=== PATIENT | female | born 1965 | race Caucasian/White ===

== ENCOUNTER 2018-01-09 13:05 | Emergency (ER) | payer OTHER ==
[2018-01-09] MEDS: TETRACAINE 0.5% OPHTH SOLUTION 4ML BOTTLE. OS (13:21)
[2018-01-09] MEDS: FLUORESCEIN OPHTH TEST STRIP. OS (13:21)
[2018-01-09] MEDS: DIPHTH,PERTUSS(ACELL),TET TOX 0.5 ML DISP.SYRIN. VAX IM (13:22)
== END 2018-01-09 13:42 | disposition home or self-care (01) ==
LOC: ER 13:05
DX: T15.12XA Foreign body in conjunctival sac, left eye, initial encounter (principal)
CPT/HCPCS: 65205; 65222; 90471; 90715; 99284-25

== ENCOUNTER 2019-06-12 12:13 | Emergency (ER) | payer MEDICAID, OTHER ==
[~2019-06-12] VITALS: Ht 154.9 cm; Wt 61.2 kg
[~2019-06-12 12:13] MED LIST: ERYT1OIN6 OP; HYDR-3164 PO
--- NOTE | 2019-06-12 13:34 | RAD ---
CHEST PA LATERAL History: Cough Comparison: None. Findings: No consolidation or pleural effusion. Normal heart size. Postop changes lower cervical spine. Chronic right-sided rib fractures. Impression: 1. No acute cardiopulmonary process. Electronically signed by: Bridger Celis DO (06/12/2019 1:31 PM) [facility]
[2019-06-12] MEDS ORDERED: ALBU2.5V8 INH (13:44)
[2019-06-12] MEDS ORDERED: AZIT1PAC9 PO (13:44)
[2019-06-12] MEDS ORDERED: BENZ100C PO (13:44)
--- NOTE | 2019-06-12 13:45 | PHYS DOC ---
Past Medical History Past Medical History: Bronchitis, COPD, TB (took medication for 20 years ago) Past Surgical History: , Pacemaker, Tubal ligation, Other Additional Past Surgical Histo: D & C X 2, NECK SX, ROTATOR CUFF SX Smoking: Cigarettes, Less than 1pk/day Alcohol Use: Rarely Drug Use: None Adult General Chief Complaint Chief Complaint: Congestion [facility] HPI Patient is a 53 year old female who presents to the emergency department with complaints of a cough for the last month that has increased over the last 2 weeks. Patient states she is unable to produce any mucus with her cough. She denies any shortness of breath, or wheezing. Patient also denies any fever, nausea, vomiting, diarrhea, abdominal pain, dysuria, increased urinary frequency, ear pain, sore throat, or headache. Review of Systems Review of Systems Constitutional: Denies fever or chills [] Eyes: Denies change in visual acuity, redness, or eye pain [] HENT: Denies nasal congestion or sore throat [] Respiratory: Denies wheezing or shortness of breath; see hPI Cardiovascular: No additional information not addressed in HPI; denies chest pain or palpitations [] GI: Denies abdominal pain, nausea, vomiting, or diarrhea [] : Denies dysuria or hematuria [] Musculoskeletal: Denies back pain or joint pain [] Integument: Denies rash or skin lesions [] Neurologic: Denies headache Complete systems were reviewed and found to be within normal limits, except as documented in this note. Allergies Allergies Allergies Coded Allergies Type Severity Reaction Last Updated Verified No Known Drug Allergies 01/09/18 No Physical Exam Physical Exam Constitutional: Well developed, well nourished, no acute distress, non-toxic appearance. [] HENT: Normocephalic, atraumatic, bilateral external ears normal, posterior pharynx normal, oropharynx moist, no oral exudates, nose normal. [] Eyes: PERRLA, EOMI, conjunctiva normal, no discharge. [] Neck: Normal range of motion, no stridor. [] Cardiovascular:Heart rate regular rhythm, no murmur [] Lungs & Thorax: Bilateral breath sounds clear to auscultation; no retractions, no wheezing, [] Skin: Warm, dry, no erythema, no rash. [] Back: No tenderness Extremities: No cyanosis, ROM intact, no edema. [] Neurologic: Alert and oriented X 3, no focal deficits noted. [] Psychologic: Affect normal, judgement normal, mood normal. [] Current Patient Data Vital Signs Vital Signs Date Time Temp Pulse Resp B/P (MAP) Pulse Ox O2 Delivery O2 Flow Rate FiO2 06/12/19 13:10 97.7 98 18 122/65 (84) 97 Room Air 97.7 EKG EKG [] Radiology/Procedures Radiology/Procedures PROCEDURE: CHEST PA & LATERAL CHEST PA LATERAL History: Cough Comparison: None. Findings: No consolidation or pleural effusion. Normal heart size. Postop changes lower cervical spine. Chronic right-sided rib fractures. Impression: 1. No acute cardiopulmonary process. [] Course & Med Decision Making Course & Med Decision Making Pertinent Labs and Imaging studies reviewed. (See chart for details) [] Dragon Disclaimer Dragon Disclaimer This electronic medical record was generated, in whole or in part, using a voice recognition dictation system. Departure Departure Impression: Primary Impression: Bronchitis Disposition: HOME, SELF-CARE Condition: STABLE Referrals: NO PCP (PCP) Patient Instructions: Acute Bronchitis, [id number] Additional Instructions: Fill prescriptions and use as directed. Avoid airway irritants including smoke, dust, animal dander, and fragrances. Follow up with your primary care doctor in 1-2 days, return to the ER if symptoms worsen. Scripts Benzonatate (TESSALON PERLE) 100 Mg Capsule 1 CAP PO TID PRN for COUGH for 7 Days, #21 CAP 0 Refills Prov: KATARINA BARNETT [employer] 06/12/19 Albuterol Sulfate (PROAIR HFA INHALER) 8.5 Gm Hfa.aer.ad 2 PUFF INH PRN Q6HRS PRN for SHORTNESS OF BREATH for 30 Days, #1 INHALER 1 Refill Prov: KATARINA BARNETT [employer] 06/12/19 Azithromycin (AZITHROMYCIN PACKET) 1 Gm Packet 1 PACKET PO UD for 5 Days, #1 PACKET 0 Refills Prov: KATARINA BARNETT [employer] 06/12/19 KATARINA BARNETT [employer] IN[employer] Jun 12, 2019 13:44
[2019-06-12 13:50] VITALS: BP 128/60
== END 2019-06-12 13:54 | disposition home or self-care (01) ==
LOC: ER 12:13
DX: J44.9 Chronic obstructive pulmonary disease, unspecified (principal); F17.210 Nicotine dependence, cigarettes, uncomplicated; Z98.890 Other specified postprocedural states; Z98.51 Tubal ligation status; Z95.0 Presence of cardiac pacemaker
CPT/HCPCS: 71046; 99284